=== PATIENT | female | born 1990 | race Caucasian/White ===

== ENCOUNTER 2016-09-25 21:10 | Emergency (ER) | payer SELFPAY ==
[~2016-09-25] VITALS: Ht 149.9 cm; Wt 45.2 kg
[2016-09-25 21:25] VITALS: BP 96/65; PULSE 80; RESP 16; TEMP 99; O2SAT 97
[2016-09-25] MEDS ORDERED: CLIN1CAP6 PO (21:47)
[2016-09-25] MEDS ORDERED: BACT800T5 PO (21:47)
--- NOTE | 2016-09-25 21:54 | PD ---
HPI Chief Complaint: Skin Problem Time Seen by Provider: 21:48 Travel History International Travel<30 days: No Contact w/Intl Traveler<30days: No Traveled to known affect area: No History of Present Illness HPI Patient is 26-year-old female with history of IVDA and MRSA presenting with painful right axillary skin lesion. Present for approximately 3-5 days. She states that it started off as a small pimple-like lesion in his current larger. It is tender to touch. She attempted to squeeze it but nothing has come out. The pain does not radiate. She denies fever, chills, nausea and vomiting. She denies generalized lymphadenopathy, diabetes and immunocompromised states. Last tetanus vaccine within 1 year. She admits to current and recent injectable use in the bilateral antecubital fossae. She denies or missed menstrual cycles. PFSH Past Medical History Medical History: Denies Significant Hx Cardiovascular Problems: No Diminished Hearing: No Genitourinary: No Musculoskeletal: No Neurologic: No Reproductive: Yes (HPV: AGE 18, COLPOSCOPY) Respiratory: No Immunizations Current: Yes ?: Not Menopausal: No : 0 Past Surgical History Appendectomy: Yes Oral Surgery: Yes Social History Alcohol Use: No Tobacco Use: Yes (1 PPD) Substance Use: Yes (hx iv drug use. ) Allergies-Medications (Allergen,Severity, Reaction): Coded Allergies: *MDRO Multi-Drug Resistant Organism (Verified Adverse Reaction, Unknown, ) MRSA arm wound 06/2015 Reported Meds & Prescriptions Reported Meds & Active Scripts Active No Active Prescriptions or Reported Medications Review of Systems Except as stated in HPI: all other systems reviewed are Neg Physical Exam Narrative GENERAL: Well-developed and well-nourished adult female in no acute distress. SKIN: 1.5 cm erythematous indurated area in the right axilla. Minimal warmth. No fluctuance or streaking. No pointing or draining. Track bocanegra bilateral antecubital fossae. Good turgor without tenting. HEAD: Normocephalic and atraumatic. EYES: PERRL bilaterally, 5mm. EOMI bilaterally. No injection or icterus present. No proptosis. Lids without edema or erythema. ENT: Buccal mucosa pink and moist. Oropharynx free of erythema, tonsillar hypertrophy, masses, swelling, asymmetry and exudates. Uvula midline and airway patent. NECK: Supple, no meningeal signs. Trachea midline, no JVD. CARDIOVASCULAR: Regular rate and rhythm without murmurs, rubs, clicks or gallops. Radial and posterior tibial pulses 2+ bilaterally. No pedal edema. RESPIRATORY: Clear to auscultation bilaterally with symmetrical rise and fall, no distress or use of accessory muscles. LYMPH: There is some surrounding lymphadenopathy all 5-10 mm in the right axilla. I believe the skin findings noted above are present cellulitis with an inflamed lymph node and not an abscess. Negative bilateral supraclavicular, cervical and facial lymphadenopathy. MUSCULOSKELETAL: No gait disturbances. Patient freely moving all four extremities spontaneously. Extremities without clubbing, cyanosis, or edema. No obvious deformities. NEUROLOGIC: CN II-XII grossly intact. Awake and alert. Motor grossly within normal limits. Normal speech. PSYCHIATRIC: Appropriate mood and affect; insight and judgment normal. Data Data Last Documented VS Vital Signs Date Time Temp Pulse Resp B/P Pulse Ox O2 Delivery O2 Flow Rate FiO2 09/25/16 21:25 99.0 80 16 96/65 97 MDM Medical Decision Making Medical Screen Exam Complete: Yes Emergency Medical Condition: Yes Differential Diagnosis Cellulitis versus lymphadenopathy versus abscess Narrative Course Patient's 26-year-old female history of IVDA and MRSA presenting with history and physical suggestive of cellulitis with lymphadenopathy in the right axilla. She is afebrile, nontoxic and has no systemic complaints. There is no streaking to suggest lymphangitis. As this is indurated and the patient has a thin body habitus believe this is most likely a lymph node and attempts to drain would be unsuccessful and likely detrimental. Patient will be given Bactrim and clindamycin per previous MRSA susceptibilities. Recommend warm compresses. Return if develops any worsening or systemic symptoms including fever.See discharge paperwork for further instructions. The plan was discussed with the patient who acknowledged their understanding and agreement. Reinforced the follow-up with primary care is critically important. Patient instructed on emergent conditions that should prompt return to ED. Diagnosis Primary Impression: Cellulitis Qualified Code: L03.111 - Cellulitis of right axilla Additional Impression: Lymphadenopathy Patient Instructions: Cellulitis (ED), General Instructions, Lymphadenopathy ( ED) Additional Instructions: Keep area clean, dry, and covered with dressing/bandage Apply warm compresses daily Take Tylenol or ibuprofen for pain Take medications as directed Follow-up with PCP in 2 days, call laboratory for wound culture results Return to the ED for any acute worsening of symptoms including worsening swelling, spreading redness, fever, chills, nausea and vomiting Med/Other Pt SpecificInfo: Prescription(s) given Scripts Clindamycin 300 Mg [id number] Mg PO Q6H 10 Days Prov:Kenneth Gustafson MD 09/25/16 Sulfamethoxazole-Trimethoprim (Bactrim DS)800-160 Mg Tab1 Tab PO BID #20 TAB Prov:Kenneth Gustafson MD 09/25/16 Disposition: 01 DISCHARGE HOME Condition: Stable Garth Carter III Sep 25, 2016 21:54
== END 2016-09-25 22:05 | disposition home or self-care (01) ==
LOC: PHEFT 21:10
DX: L03.111 Cellulitis of right axilla (principal); R59.9 Enlarged lymph nodes, unspecified; F17.210 Nicotine dependence, cigarettes, uncomplicated
CPT/HCPCS: 99282